=== PATIENT | male | born 1980 | race Caucasian/White ===

== ENCOUNTER 2016-11-21 23:14 | Emergency (ER) | payer OTHER | END 2016-11-22 02:13 | disposition home or self-care (01) | LOC: FER 23:14 | DX: L02.211 Cutaneous abscess of abdominal wall (principal); L03.311 Cellulitis of abdominal wall; I10 Essential (primary) hypertension; F17.210 Nicotine dependence, cigarettes, uncomplicated; Z79.899 Other long term (current) drug therapy | CPT/HCPCS: 86403; 87070; 87077; 87186; 87205 ==